=== PATIENT | female | born 1980 | race Caucasian/White ===

== ENCOUNTER 2023-03-04 11:49 | Emergency (ER) | payer BC ==
[~2023-03-04] VITALS: Ht 177.8 cm; Wt 65.9 kg
[~2023-03-04 11:49] MED LIST: CELEXA40 MG PO; FLEXERIL 1010 MG/TAB PO; KLONOPIN 1MG1 MG PO; PERCOCET 325 MG1 TA2 PO; PERCOCET 325 MG1 TAB PO; ZOFRAN ODT4 MG PO
[2023-03-04 12:55] VITALS: BP 119/82; PULSE 83; TEMP 98.5
== END 2023-03-04 13:10 | disposition home or self-care (01) ==
LOC: COL.ER 11:49
DX: S60.212A Contusion of left wrist, initial encounter (principal); Z98.890 Other specified postprocedural states; W20.8XXA Other cause of strike by thrown, projected or falling object, initial encounter; Y93.89 Activity, other specified

== ENCOUNTER 2023-06-09 19:33 | Emergency (ER) | payer BC ==
[~2023-06-09] VITALS: Ht 177.8 cm; Wt 65.9 kg
[2023-06-09 19:41] VITALS: TEMP 98.2
[2023-06-09 20:27] VITALS: BP 98/69; PULSE 66
== END 2023-06-09 20:30 | disposition home or self-care (01) ==
LOC: COL.ER 19:33
DX: M79.641 Pain in right hand (principal); L53.9 Erythematous condition, unspecified; Y04.8XXA Assault by other bodily force, initial encounter

== ENCOUNTER 2023-08-25 10:04 | Emergency (ER) | payer BC ==
[~2023-08-25] VITALS: Ht 177.8 cm; Wt 65.9 kg
[2023-08-25 10:13] VITALS: BP 116/80; PULSE 94; TEMP 98
== END 2023-08-25 10:30 | disposition left against medical advice (07) ==
LOC: COL.ER 10:04
DX: G89.29 Other chronic pain (principal); R10.9 Unspecified abdominal pain; Z98.84 Bariatric surgery status; Z90.49 Acquired absence of other specified parts of digestive tract